=== PATIENT | female | born 1955 | race Two or more races ===

== ENCOUNTER 2018-11-19 22:15 | Emergency (ER) | payer BC ==
[2018-11-19 22:37] VITALS: TEMP 99.1
--- NOTE | 2018-11-19 23:20 | ED ---
General Adult HPI - General Chief complaint: Extremity Problem,Nontraumatic Stated complaint: Bruised arm Time Seen by Provider: 11/19/18 22:49 Source: patient Mode of arrival: ambulatory Limitations: no limitations - History of Present Illness Initial comments: Dictation was produced using [employer] dictation software. please excuse any grammatical, word or spelling errors. Chief Complaint: Patient is a 63-year-old female presents with left upper extremity pain and swelling. Patient is a 63-year-old female presents with left upper History of Present Illness: Leg. Patient states that she was recently admitted to intensive care unit for respiratory distress. Patient had a uncomplicated ICU stay. She was discharged shortly after. Patient during that admission also received a stress test. Patient complains of redness and pain over the left upper extremity to the proximal biceps region. She noticed some mild bruising to that area. Patient also feels swollen in her forearm area. Patient is on Coumadin for valve replacement. Patient has no other complaints at this time. The ROS documented in this emergency department record has been reviewed and confirmed by me. Those systems with pertinent positive or negative responses have been documented in the HPI. All other systems are other negative and/or n oncontributory. PHYSICAL EXAM: General Impression: Alert and oriented x3, not in acute distress HEENT: Normocephalic atraumatic, extra-ocular movements intact, pupils equal and reactive to light bilaterally, mucous membranes moist. Cardiovascular: Heart regular rate and rhythm, S1&S2 audible, no murmurs, rubs or gallops Chest: Lungs clear to auscultation bilaterally, no rhonchi, no wheeze, no rales Abdomen: Bowel sounds present, abdomen soft, non-tender, non-distended, no organomegaly Musculoskeletal: Pulses present and equal in all extremities, no peripheral edema Motor: Power 5/5 bilaterally, no focal deficits noted Neurological: CN II-XII grossly intact, no focal motor or sensory deficits noted Skin: Mild circumferential erythema about the proximal left upper extremity Psych: Normal affect and mood ED course: 63-year-old female presents with pain and swelling to the left upper extremity. Patient's heart rate is 140, rest of vital signs within acceptable limits. Patient also does have a history of atrial fibrillation. Patient requested ultrasound looking for DVT in the left upper extremity. That ultrasound is negative. Patient clear for discharge. She is told to elevate the upper extremity. Told to follow-up with primary care physician upon discharge. Patient is somewhat agreeable to plan. - Related Data Home Medications Medication Instructions Recorded Confirmed ALPRAZolam [Xanax] 0.25 mg PO DAILY PRN 11/19/18 11/19/18 Fluticasone Nasal [place] [Flonase 1 spray EA NOSTRIL BID 11/19/18 11/19/18 Nasal [place]] Lansoprazole [Prevacid] 30 mg PO BID 11/19/18 11/19/18 Levalbuterol Nebulized [Xopenex 1.25 mg INHALATION RT-TID PRN 11/19/18 11/19/18 Nebulized] Levothyroxine Sodium [Synthroid] 75 mcg PO DAILY 11/19/18 11/19/18 Lisinopril [Zestril] 5 mg PO DAILY 11/19/18 11/19/18 Metoprolol Tartrate [Lopressor] 75 mg PO BID 11/19/18 11/19/18 Rosuvastatin Calcium [Crestor] 40 mg PO HS 11/19/18 11/19/18 Warfarin [Coumadin] 2.5 mg PO SUTUWEFRSA 11/19/18 11/19/18 Warfarin [Coumadin] 3.75 mg PO MOTH 11/19/18 11/19/18 Allergies Allergy/AdvReac Type Severity Reaction Status Date / Time Tetracyclines AdvReac "furry Verified 11/19/18 23:10 tongue" Review of Systems ROS Statement: Those systems with pertinent positive or pertinent negative responses have been documented in the HPI. ROS Other: All systems not noted in ROS Statement are negative. Past Medical History Past Medical History: Atrial Fibrillation, Hypertension Additional Past Medical History / Comment(s): graves , recent respirtory failure History of Any Multi-Drug Resistant Organisms: None Reported Past Surgical History: Coronary Bypass/CABG Additional Past Surgical History / Comment(s): aortic vavle Past Psychological History: No Psychological Hx Reported Smoking Status: Former smoker Past Alcohol Use History: Occasional, Rare Past Drug Use History: None Reported General Exam Limitations: no limitations Course Vital Signs 11/19/18 22:30 Temperature 99.1 F Pulse Rate 148 H Respiratory 18 Rate Blood Pressure 163/77 O2 Sat by Pulse 96 Oximetry Disposition Clinical Impression: Arm swelling Disposition: HOME SELF-CARE Condition: Good Instructions (If sedation given, give patient instructions): Swollen Shoulder Joint (ED) Is patient prescribed a controlled substance at d/c from ED?: No Referrals: Nonstaff,Physician [Primary Care Provider] - 1-2 days Time of Disposition: 01:35
--- NOTE | 2018-11-20 01:24 | US ---
EXAM: US Duplex Left Upper Extremity Veins CLINICAL HISTORY: Pain. 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 COMPARISON: No relevant prior studies available. FINDINGS: veins: No DVT in the internal jugular, subclavian, axillary, ulnar, cephalic or brachial veins. The veins demonstrate normal color flow, are normally compressible, with normal phasic flow and/or augmentation response. Soft tissues: No acute findings. Tubes, lines and devices: Parallel echogenic cardozo within left Subclavian Vein , may represent a catheter or pacemaker wire. IMPRESSION: No venous thrombosis identified
[2018-11-20 01:47] VITALS: BP 130/75; PULSE 80; RESP 16
== END 2018-11-20 01:46 | disposition home or self-care (01) ==
LOC: EC 22:15
DX: M79.89 Other specified soft tissue disorders (principal); M79.602 Pain in left arm; I48.91 Unspecified atrial fibrillation; I10 Essential (primary) hypertension; Z95.1 Presence of aortocoronary bypass graft; Z87.891 Personal history of nicotine dependence; Z79.890 Hormone replacement therapy; Z79.01 Long term (current) use of anticoagulants; Z79.899 Other long term (current) drug therapy; Z88.1 Allergy status to other antibiotic agents
CPT/HCPCS: 99283

== ENCOUNTER 2018-11-23 22:35 | Emergency (ER) | payer BC, MEDICARE ==
[2018-11-23 22:40] VITALS: RESP 18
--- NOTE | 2018-11-23 22:51 | ED ---
Arrhythmia/Palpitations HPI - General Chief Complaint: Arrhythmia/Palpitations Stated Complaint: A Fib Time Seen by Provider: 11/23/18 22:42 Source: patient Mode of arrival: ambulatory Limitations: no limitations - History of Present Illness Initial Comments: Yun Darnell is a 63 old female who presents to the emergency department today for evaluation of palpitations. Patient states that she has a history of paroxysmal a-fib which developed during aortic valve replacement approximately 2 years ago. Patient reports a 2-3 weeks ago she developed pneumonia and had some palpitations, she delayed going to the emergency department by the time she was taken to the hospital she developed respiratory failure had to be intubated and life flighted to a tertiary care facility. Patient reports that she's been doing well since discharge she's been feeling good. She staying with her sister due to her having an alcohol abuse problem and Warnicke's encephalopathy which causes her a lot of stress. She reports that this evening she got some very disturbing information about her being inappropriate with some other friends and she became very upset she then felt her heart began racing and felt like she may be having a panic attack however due to the recent hospitalization and the episode of A. fib with RVR she experienced during that t gwendolyn she is to come to the ER for further evaluation. Reports that upon arrival to the emergency department she is feeling much better and is asymptomatic, stress is concerned that she may have had a panic attack. - Related Data Home Medications Medication Instructions Recorded Confirmed ALPRAZolam [Xanax] 0.25 mg PO DAILY PRN 11/19/18 11/23/18 Fluticasone Nasal [place] [Flonase 1 spray EA NOSTRIL BID 11/19/18 11/23/18 Nasal [place]] Lansoprazole [Prevacid] 30 mg PO BID 11/19/18 11/23/18 Levalbuterol Nebulized [Xopenex 1.25 mg INHALATION RT-TID PRN 11/19/18 11/23/18 Nebulized] Levothyroxine Sodium [Synthroid] 75 mcg PO DAILY 11/19/18 11/23/18 Lisinopril [Zestril] 5 mg PO DAILY 11/19/18 11/23/18 Rosuvastatin Calcium [Crestor] 40 mg PO HS 11/19/18 11/23/18 Warfarin [Coumadin] 2.5 mg PO SUTUWEFRSA 11/19/18 11/23/18 Warfarin [Coumadin] 3.75 mg PO MOTH 11/19/18 11/23/18 Carvedilol [Coreg] 25 mg PO BID 11/23/18 11/23/18 Allergies Allergy/AdvReac Type Severity Reaction Status Date / Time Tetracyclines AdvReac "furry Verified 11/23/18 22:56 tongue" Review of Systems ROS Statement: Those systems with pertinent positive or pertinent negative responses have been documented in the HPI. ROS Other: All systems not noted in ROS Statement are negative. Past Medical History Past Medical History: Atrial Fibrillation, Hypertension Additional Past Medical History / Comment(s): graves , recent respirtory failure History of Any Multi-Drug Resistant Organisms: None Reported Past Surgical History: Coronary Bypass/CABG Additional Past Surgical History / Comment(s): aortic vavle 2015 Past Psychological History: No Psychological Hx Reported Smoking Status: Former smoker Past Alcohol Use History: Occasional, Rare Past Drug Use History: None Reported General Exam - General Exam Comments Initial Comments: Physical Exam GENERAL: Patient is well-developed and well-nourished. Patient is nontoxic and well- hydrated and is in no distress. HENT: Normocephalic, Atraumatic. EYES: PERRL, EOMI PULMONARY: Unlabored respirations. No audible rales rhonchi or wheezing was noted. CARDIOVASCULAR: There is a regular rate and rhythm without any murmurs gallops or rubs. ABDOMEN: Soft and nontender with normal bowel sounds. SKIN: Skin is clear with no lesions or rashes and otherwise unremarkable. : Deferred NEUROLOGIC: Patient is alert and oriented x3. Moving all extremities spontaneously MUSCULOSKELETAL: Normal extremities with adequate strength and full range of motion. No lower extremity swelling or edema. No calf tenderness. PSYCHIATRIC: Normal psychiatric evaluation. Limitations: no limitations Limitations: no limitations Course Vital Signs 11/23/18 11/23/18 11/24/18 22:37 23:08 00:48 Temperature 98.2 F 98.5 F Pulse Rate 104 H 81 Pulse Rate [ 98 Supine Apical] Respiratory 18 18 Rate Blood Pressure 186/77 123/77 O2 Sat by Pulse 100 98 Oximetry EKG Findings - EKG Comments: EKG Findings:: EKG obtained at 1051, rate is 102 rhythm is sinus tachycardia there is normal axis, nonspecific ventricular block. ND is 158 QRS is 144 QTc is mildly prolonged at 516. There is no ST elevations or depressions no evidence of acute ischemia or infarction. Medical Decision Making - Medical Decision Making Patient was seen and evaluated history was obtained from the patient's sister bedside Patient with a history of axis small atrial fibrillation and recent hospitalization for sepsis which was complicated by respiratory failure and A. fib with RVR Patient some palpitations this evening after a very stressful emotional conversation. Patient became concerned she may be in A. fib so came immediately a hospital upon arrival her palpitations have improved significantly she now believes she may have had a panic attack. Basic labs and EKG as well as x-ray were obtained given the patient's there is significant recent history neck sinus and EKG with no signs of arrhythmia. Rhythm is sinus. Asked x-ray was unremarkable and labs with no significant abnormalities at this time patient is comfortable with plan for discharge home and outpatient follow-up. Return parameters were discussed all questions pertaining care were answered patient was discharged home in stable condition. - Lab Data Result diagrams: 11/24/18 00:10 11/23/18 23:00 Lab Results 11/23/18 11/23/18 11/24/18 Range/Units 23:00 23:00 00:10 WBC 9.8 (3.8-10.6) k/uL RBC 5.12 (3.80-5.40) m/uL Hgb 14.7 (11.4-16.0) gm/dL Hct 46.8 H (34.0-46.0) % MCV 91.3 (80.0-100.0) fL MCH 28.7 (25.0-35.0) pg MCHC 31.5 (31.0-37.0) g/dL RDW 14.1 (11.5-15.5) % Plt Count 205 (150-450) k/uL Neutrophils % 72 % Lymphocytes % 17 % Monocytes % 6 % Eosinophils % 3 % Basophils % 1 % Neutrophils # 7.1 (1.3-7.7) k/uL Lymphocytes # 1.7 (1.0-4.8) k/uL Monocytes # 0.6 (0-1.0) k/uL Eosinophils # 0.3 (0-0.7) k/uL Basophils # 0.1 (0-0.2) k/uL Sodium 140 (137-145) mmol/L Potassium 4.2 (3.5-5.1) mmol/L Chloride 109 H (98-107) mmol/L Carbon Dioxide 21 L (22-30) mmol/L Anion Gap 10 mmol/L BUN 14 (7-17) mg/dL Creatinine 0.74 (0.52-1.04) mg/dL Est GFR (CKD-EPI)AfAm >90 (>60 ml/min/1.73 sqM) Est GFR (CKD-EPI)NonAf 87 (>60 ml/min/1.73 sqM) Glucose 148 H (74-99) mg/dL Calcium 9.3 (8.4-10.2) mg/dL Magnesium 1.8 (1.6-2.3) mg/dL Total Bilirubin 0.7 (0.2-1.3) mg/dL AST 31 (14-36) U/L ALT 34 (9-52) U/L Alkaline Phosphatase 97 (38-126) U/L Troponin I <0.012 (0.000-0.034) ng/mL Total Protein 6.8 (6.3-8.2) g/dL Albumin 4.2 (3.5-5.0) g/dL Disposition Clinical Impression: Palpitations Disposition: HOME SELF-CARE Condition: Stable Instructions (If sedation given, give patient instructions): Heart Palpitations (ED) Is patient prescribed a controlled substance at d/c from ED?: No Referrals: Kisha Robles NPC [REFERRING] - 1-2 days
[2018-11-24 00:07] LABS: ALT 34 U/L (9-52); AST 31 U/L (14-36); Albumin 4.2 g/dL (3.5-5.0); Alkaline Phosphatase 97 U/L (38-126); Anion Gap 10 mmol/L; Blood Urea Nitrogen 14 mg/dL (7-17); Calcium 9.3 mg/dL (8.4-10.2); Carbon Dioxide 21 mmol/L (22-30); Chloride 109 mmol/L (98-107); Glucose 148 mg/dL (74-99); Magnesium 1.8 mg/dL (1.6-2.3); Potassium 4.2 mmol/L (3.5-5.1); Sodium 140 mmol/L (137-145); Total Bilirubin 0.7 mg/dL (0.2-1.3); Total Protein 6.8 g/dL (6.3-8.2)
--- NOTE | 2018-11-24 00:33 | XR ---
EXAM: XR Chest, 2 Views CLINICAL HISTORY: ITS.REASON XR Reason: dysrhythmia TECHNIQUE: Frontal and lateral views of the chest. COMPARISON: 11/02/2016 FINDINGS: Lungs: Slight chronic interstitial thickening. No airspace consolidation. Pleural space: Blunting of the left costophrenic sulcus likely related to pleural scarring. No significant effusion. No visualized pneumothorax. Heart: Stable size. Mediastinum: Stable size. Bones/joints: 2 sternotomy wires are present which are discontinuous, stable appearance. Tubes, lines and devices: Cardiac pacer noted overlying the left chest with leads extending to the atria and ventricles. Stable valve prosthesis. IMPRESSION: No acute cardiopulmonary findings.
[2018-11-24 00:47] LABS: Basophils # (A) 0.1 k/uL (0-0.2); Basophils % (A) 1 %; Eosinophils # (A) 0.3 k/uL (0-0.7); Eosinophils % (A) 3 %; HCT 46.8 % (34.0-46.0); HGB 14.7 gm/dL (11.4-16.0); Lymphocytes # (A) 1.7 k/uL (1.0-4.8); Lymphocytes % (A) 17 %; MCH 28.7 pg (25.0-35.0); MCHC 31.5 g/dL (31.0-37.0); MCV 91.3 fL (80.0-100.0); Monocytes # (A) 0.6 k/uL (0-1.0); Monocytes % (A) 6 %; Neutrophils # (A) 7.1 k/uL (1.3-7.7); Neutrophils % (A) 72 %; Platelet Count 205 k/uL (150-450); RBC 5.12 m/uL (3.80-5.40); RDW 14.1 % (11.5-15.5); WBC 9.8 k/uL (3.8-10.6)
[2018-11-24 00:49] VITALS: BP 123/77; PULSE 81; TEMP 98.5
[2018-11-24 04:18] LABS: Partial Thromboplastin Time 33.2 sec (22.0-30.0)
== END 2018-11-24 00:55 | disposition home or self-care (01) ==
LOC: SUPCPDRO 22:35 → EC 22:35
DX: R00.2 Palpitations (principal); F43.9 Reaction to severe stress, unspecified; I48.91 Unspecified atrial fibrillation; I10 Essential (primary) hypertension; Z87.09 Personal history of other diseases of the respiratory system; Z87.891 Personal history of nicotine dependence; Z79.01 Long term (current) use of anticoagulants; Z79.899 Other long term (current) drug therapy; Z88.1 Allergy status to other antibiotic agents; Z95.1 Presence of aortocoronary bypass graft; Z95.2 Presence of prosthetic heart valve
CPT/HCPCS: 36415; 71046; 80053; 83735; 84484; 85025; 85610; 85730; 93005; 99285